=== PATIENT | male | born 1990 | race Caucasian/White ===

== ENCOUNTER 2018-06-24 22:09 | Emergency (ER) | payer SELFPAY ==
[2018-06-24] MEDS ORDERED: Lidocaine 2% MPF (5 ml) Inj ONE (23:07)
[2018-06-24] MEDS ORDERED: Bacitracin 500 Units/gm Oint Foilpak UD ONE (23:40)
--- NOTE | 2018-06-24 23:54 | C.PDOC ---
History Of Present Illness 27 year old male presents after sustaining a laceration to his left hands with an exercise machine. Denies weakness or numbness. Tetanus is not up to date. Time Seen by Provider: 06/24/18 22:45 Chief Complaint (Nursing): Abnormal Skin Integrity History Per: Patient History/Exam Limitations: no limitations Onset/Duration Of Symptoms: Hrs Current Symptoms Are (Timing): Still Present Location Of Injury: Left: Hand Recent travel outside of the [place]: No Past Medical History Reviewed: Historical Data, Nursing Documentation, Vital Signs Vital Signs: Last Vital Signs Temp 98.8 F 06/24/18 22:17 Pulse 79 06/24/18 22:17 Resp 18 06/24/18 22:17 BP 149/89 06/24/18 22:17 Pulse Ox 99 06/24/18 22:17 - Medical History PMH: Back Problems Denies: Chronic Kidney Disease Surgical History: Back Surgery (SPINAL FUSION) Family History: States: Unknown Family Hx - Social History Hx Tobacco Use: No Hx Alcohol Use: Yes Hx Substance Use: No - Immunization History Hx Tetanus Toxoid Vaccination: Yes Hx Influenza Vaccination: No Hx Pneumococcal Vaccination: No Review Of Systems Skin: Positive for: Other (Laceration) Neurological: Negative for: Weakness, Numbness Physical Exam - Physical Exam Appears: Non-toxic Skin: Warm Head: Atraumatic, Normacephalic Eye(s): bilateral: Normal Inspection Extremity: Normal ROM (x4), Capillary Refill (<2 seconds), Other (3cm laceration to anterolateral aspect of the base of 2nd left MCP. Skin avulsion to left palmar aspect between 2nd and 3rd fingers) Pulses: Left Radial: Normal, Right Radial: Normal Neurological/Psych: Oriented x3, Normal Speech, Normal Motor, Normal Sensation ED Course And Treatment O2 Sat by Pulse Oximetry: 99 (Room air) Pulse Ox Interpretation: Normal Progress Note: Tetanus vaccination administered. Patient tolerated laceration repair without any difficulty, bacitracin and dressing applied, will discharge home with proper wound care instructions and advised to follow up for suture removal. Laceration - Laceration Repair Left hand Wound Length (In cm): 3 Description Of Wound: Linear Wound Cleansed With: Sterile Saline Anesthesia: Lidocaine 1% Wound Examination: Irrigated With Saline, No FB With Wound Exploration, No Ten don Injury With Wound Exploration Wound Closure: Suture (Five) Suture Technique And Material Used: Nylon (3-0) Disposition Counseled Patient/Family Regarding: Diagnosis, Need For Followup, Rx Given - Disposition Referrals: Beto Blas MD [Staff Provider] - Disposition: HOME/ ROUTINE Disposition Time: 23:51 Condition: STABLE Additional Instructions: Please follow up with PMD in 2 days for wound check keep wound clean and dry Suture removal in 8- 10 days Return to ER if worse Instructions: Laceration Repair With Stitches (DC) Forms: [email or web address] ([place]), Work Excuse - Clinical Impression Clinical Impression: Laceration of left hand - PA / FINANCIAL INVESTMENT MANAGER / Resident Statement MD/DO has reviewed & agrees with the documentation as recorded. - Scribe Statement The provider has reviewed the documentation as recorded by the Scribgustabo Paulino All medical record entries made by the Izzyibgustabo were at my direction and personally dictated by me. I have reviewed the chart and agree that the record accurately reflects my personal performance of the history, physical exam, medical decision making, and the department course for this patient. I have also personally directed, reviewed, and agree with the discharge instructions and disposition.
[2018-06-24] MEDS ORDERED: Tetanus/Diphtheria Toxoids 0.5 ml Syringe IM ONE (23:55)
[2018-06-25] MEDS ORDERED: Tetanus/Diphtheria Toxoids 0.5 ml Syringe IM ONE (00:08)
[2018-06-25 00:16] VITALS: BP 140/86; PULSE 90; RESP 20; TEMP 98.6
[2018-06-25 02:52] VITALS: O2SAT 99
== END 2018-06-25 00:14 | disposition home or self-care (01) ==
LOC: C.ER 22:09
DX: S61.412A Laceration without foreign body of left hand, initial encounter (principal); W31.9XXA Contact with unspecified machinery, initial encounter; Z23 Encounter for immunization